=== PATIENT | male | born 1945 | race Caucasian/White ===

== ENCOUNTER 2023-01-24 16:09 | Emergency (ER) | payer BC ==
[~2023-01-24] VITALS: Ht 175.3 cm; Wt 89.5 kg
[2023-01-24 16:45] VITALS: BP 156/74; PULSE 53; RESP 18; TEMP 98.5; O2SAT 95
[2023-01-24] MEDS ORDERED: POLOS RIGHTEYE (18:29)
[2023-01-24] MEDS ORDERED: AMOX-117 PO (18:29)
== END 2023-01-24 18:38 | disposition home or self-care (01) ==
LOC: ER 16:10
DX: L03.213 Periorbital cellulitis (principal); H10.9 Unspecified conjunctivitis; Z79.2 Long term (current) use of antibiotics
CPT/HCPCS: 99283